=== PATIENT | female | born 1960 | race Caucasian/White ===

== ENCOUNTER 2023-01-22 18:02 | Outpatient (CLI) | payer BC, SELFPAY ==
[2023-01-24 10:08] LABS: Chlamydia DNA Amplified* Not Detected (No Detected); GC DNA Amplified* Not Detected (No Detected)
== END 2023-01-22 18:03 | disposition home or self-care (01) ==
LOC: LKVREF 18:03
PROVIDERS: PCP Physician Assistant Medical; Visit Provider Physician Assistant Medical
DX: Z11.3 Encounter for screening for infections with a predominantly sexual mode of transmission (principal); I10 Essential (primary) hypertension; R30.9 Painful micturition, unspecified
CPT/HCPCS: 87086; 87491; 87591

== ENCOUNTER 2025-03-04 13:35 | Outpatient (CLI) | payer BC, SELFPAY | END 2025-03-04 13:36 | disposition home or self-care (01) | PROVIDERS: Visit Provider Physician Assistant Medical | DX: Z00.00 Encounter for general adult medical examination without abnormal findings (principal); I10 Essential (primary) hypertension; E66.9 Obesity, unspecified; Z78.0 Asymptomatic menopausal state; Z13.21 Encounter for screening for nutritional disorder; Z13.1 Encounter for screening for diabetes mellitus | CPT/HCPCS: 80053; 80061; 82306; 82533; 82627; 83001; 83002; 83525; 84144; 84403; 84443; 86140; 86376 ==